=== PATIENT | female | born 1975 | race Two or more races ===

== ENCOUNTER → 2024-08-03 | Outpatient (CLI) | payer BC, SELFPAY ==
--- NOTE | 2024-08-03 11:15 | XR_ITS ---
Examination: Breast ultrasound, unilateral, left complete Date and time of exam: August 03, 2024 1117 hours INDICATIONS: Outside mammogram 05/30/2024 11 mm asymmetry lower inner quadrant left breast, 9 mm asymmetry lateral left breast Technique: Real-time winkler scale ultrasonographic imaging performed left breast including all 4 quadrants as well as nipple retroareolar and axillary region. Findings: 8:00 cyst 4 x 2 x 5 mm Normal appearing left axillary lymph node No solid nodules IMPRESSION: BI-RADS Category 2: Benign findings
--- NOTE | 2024-08-03 11:45 | XR_ITS ---
Examination: Diagnostic digital mammography, unilateral, left Computer aided detection 3-D breast Tomosynthesis, unilateral Date and time of exam: August 03, 2024 1145 hours INDICATIONS: Outside mammogram 05/30/2024 11 mm focal asymmetry lower inner quadrant left breast 9 mm asymmetry lateral left breast Technique: Nonmagnified MLO, CC views of the left breast have been obtained, reconstructed from 3-D Tomosynthesis images. R2 computer aided detection program utilized for evaluation of suspicious masses and/or abnormal calcifications. 3-D Tomosynthesis images obtained. Findings: The breast is heterogeneously dense, which may obscure small masses Focal asymmetry persists lower left breast on the CC view Impression: BI-RADS category 3: Probably benign findings One additional 6 month left mammogram follow-up is needed
== END | disposition home or self-care (01) ==
PROVIDERS: PCP Nurse Practitioner Family; Referring Provider Nurse Practitioner Family; Visit Provider Nurse Practitioner Family
DX: R92.332 Mammographic heterogeneous density, left breast (principal); N64.89 Other specified disorders of breast
CPT/HCPCS: 76641; 77061; 77065; G0279